=== PATIENT | female | born 1990 | race Caucasian/White ===

== ENCOUNTER 2016-07-30 15:46 | Inpatient (IN) | payer OTHER ==
[~2016-07-30] VITALS: Ht 162.6 cm; Wt 97.0 kg
[~2016-07-30 15:46] MED LIST: ACET1TAB40 PO; AZIT250T94 PO; IBUP-1542 PO; NITR-58 PO
[2016-07-30 16:18] VITALS: Ht 162.6 cm; Wt 97.0 kg
[2016-07-30 16:19] VITALS: BP 117/56; PULSE 96; RESP 18
[2016-07-30] MEDS ORDERED: PREN1TAB79 PO (16:29)
[2016-07-30 17:03] LABS: ADD SCAN DIFF NO
[2016-07-30 17:09] LABS: BASOPHILS % 0.3 % (0.0-2.0); EOSINOPHILS # 0.2 10^3/ul (0.0-0.5); EOSINOPHILS % 2.7 % (0.0-7.0); HEMATOCRIT 34.7 % (37.0-47.0); HEMOGLOBIN 11.4 g/dl (12.0-16.0); LYMPHOCYTES # 1.8 10^3/ul (0.8-2.9); LYMPHOCYTES % 25.7 % (15.0-51.0); MEAN CORPUSCULAR HEMOGLOBIN 28.9 pg (29.0-33.0); MEAN CORPUSCULAR HGB CONC 32.9 g/dl (32.0-37.0); MEAN CORPUSCULAR VOLUME 87.8 fl (82.0-101.0); MEAN PLATELET VOLUME 12.7 fl (7.4-10.4); MONOCYTE # 0.4 10^3/ul (0.3-0.9); MONOCYTES % 6.3 % (0.0-11.0); NEUTROPHIL # 4.5 10^3/ul (1.6-7.5); NEUTROPHILS % 64.3 % (39.0-77.0); PLATELET COUNT 117 10^3/UL (140-415); RED BLOOD COUNT 3.95 10^6/ul (4.20-5.40); RED CELL DISTRIBUTION WIDTH 14.8 % (11.5-14.5)
[2016-07-30 17:11] LABS: ADD UMIC NO; URINE BILIRUBIN (Dip) NEGATIVE (NEGATIVE); URINE BLOOD (Dip) NEGATIVE (NEGATIVE); URINE COLOR LT. YELLOW (YELLOW); URINE GLUCOSE (Dip) NEGATIVE (NEGATIVE); URINE KETONES (Dip) NEGATIVE (NEGATIVE); URINE LEUKOCYTE ESTERASE (Dip) NEGATIVE (NEGATIVE); URINE NITRITE (Dip) NEGATIVE (NEGATIVE); URINE TOTAL PROTEIN (Dip) NEGATIVE (NEGATIVE); URINE UROBILINOGEN (Dip) 0.2 E.U./dL (0.1-1.0)
--- NOTE | 2016-07-30 17:27 | RADRPT ---
PROCEDURE: US biophysical profile. CLINICAL INDICATION: Decreased motion. The patient had labor. TECHNIQUE: Multiple sonographic images of the uterus were obtained. The images were revi ewed on a PACS workstation. COMPARISON: No prior studies are available for comparison. FINDINGS: There is a single live intrauterine gestation. heart rate is 127 beats per minute. The position is cephalic. The placenta is anterior grade II with no abruption or previa. The NAYLA is 9.4 cm. (Normal = 5-20 cm.) Breathing Movement: 2 Gross Body Movement: 2 Tone: 2 Qualitative Amniotic Fluid Volume: 2 TOTAL: 8 IMPRESSION: 1. The biophysical score is 8/8. RPTAT: QQ .Sathish Brown MD, Date Time Electronically viewed and signed by .Sathish Brown MD, MD on 07/30/2016 17:27 .R/
--- NOTE | 2016-07-30 17:30 | RADRPT ---
PROCEDURE: US OB. CLINICAL INDICATION: Large for gestational age. TECHNIQUE: Multiple sonographic images of the uterus were obtained. The images were revi ewed on a PACS workstation. COMPARISON: No prior studies are available for comparison. FINDINGS: There is a single live intrauterine gestation. heart rate is 157 beats per minute. Measurements were made in order to determine age. The results are as follows: BPD = 9.34 cm. HC = 33.00 cm. AC = 34.21 cm. FL = 7.43 cm. Estimated weight is 3371 +/- 505 grams. LMP growth percentile is 66 %. Menstrual age by ultrasound dates is 38 weeks 0 days. The estimated date of delivery is 08/13/2016. Position is cephalic and placenta is anterior grade II. There is no evidence for an abruption or [place] cent[place] previa. IMPRESSION: 1. Single live intrauterine gestation of 38 weeks 0 days menstrual age by ultrasound dates. 2. The estimated date of delivery is 08/13/2016. RPTAT: QQ .Sathish Brown MD, Date Time Electronically viewed and signed by .Sathish Brown MD, on 07/30/2016 17:30 .R/
[2016-07-30 17:55] LABS: ALBUMIN 3.1 g/dl (3.3-4.9)
[2016-07-30 17:56] LABS: POTASSIUM 3.6 mmol/L (3.5-5.1)
[2016-07-30 17:57] LABS: CREATININE 0.51 mg/dl (0.44-1.00)
[2016-07-30 17:58] LABS: BILIRUBIN,INDIRECT 0.4 mg/dl (0-1.1); BILIRUBIN,TOTAL 0.4 mg/dl (0.2-1.3); TOTAL PROTEIN 6.2 g/dl (6.1-8.1)
[2016-07-30 17:59] LABS: CALCIUM 9.6 mg/dl (8.4-10.2)
--- NOTE | 2016-07-30 19:55 | HP ---
Date/Time of Note Date/Time of Note DATE: 07/30/16 TIME: 19:52 OB - History Hx of Present Chief Complaint: contractions Estimated Due Date: August 14, 2016 : 8 Para: 5 Spontaneous : 2 Therapeutic : 0 Care: Good Care Ultrasounds: Normal mid trimester US Obstetrical Complications: None Medical Complications: None Past Family/Social History * Past Medical, Surgical, Family and Obstetric Histories reviewed from chart. GBS Status: Negative OB Admission Exam Vital Signs Vital Signs Vital Signs Date Time Temp Pulse Resp B/P Pulse Ox O2 Delivery O2 Flow Rate FiO2 07/30/16 16:19 99.0 07/30/16 16:19 96 18 117/56 Room Air Physical Exam HEENT: WNL Heart: Rhythm Normal Lungs: Clear Abdomen: WNL Extremities: Normal Cervical Dilatation: 5cm Effacement: 50% Station: -1 Membranes: Intact Heart Rate: 140's Accelerations: Accelerations Present Varibility: Moderate Last 72 hours Lab Results CBC & BMP 07/30/16 16:40 Liver Function Test 07/30/16 16:40 Alanine Aminotransferase (ALT/SGPT) 19 Albumin 3.1 L Alkaline Phosphatase 162 H Aspartate Amino Transf (AST/SGOT) 20 Direct Bilirubin 0.00 Total Protein 6.2 OB Assessment/Plan Reason for admission: other (contractions) Plan: Expectant Management KRISTEN SETH MD July 30, 2016 19:55
[2016-07-30] MEDS ORDERED: LIDOCAINE 1% (MPF) 30 ML INJ INJ PRN (20:00)
[2016-07-30] MEDS ORDERED: MISOPROSTOL 200 MCG TAB PR PRN (20:00)
[2016-07-30] MEDS ORDERED: BUTORPHANOL 2 MG INJ IV PRN (20:00)
[2016-07-30] MEDS ORDERED: METHYLERGONOVINE 0.2 MG INJ IM PRN (20:00)
[2016-07-30] MEDS ORDERED: IBUPROFEN 600 MG TAB PO PRN (20:00)
[2016-07-30] MEDS ORDERED: CARBOPROST 250 MCG INJ IM PRN (20:00)
[2016-07-30] MEDS ORDERED: LACTATED RINGER'S 1,000 ML IV PRN (20:00)
[2016-07-30] MEDS ORDERED: OXYTOCIN 30 UNITS/LR 500 ML IV SCH ×2 (20:00)
[2016-07-30] MEDS ORDERED: OXYTOCIN 30 UNITS/LR 500 ML IV PRN (20:00)
[2016-07-30] MEDS: LACTATED RINGER'S 1,000 ML IV SCH (20:12)
[2016-07-30 20:24] LABS: INR 1.01; PROTIME 13.3 Sec (12.2-14.2)
[2016-07-30 20:25] LABS: PARTIAL THROMBOPLASTIN TIME 26.6 Sec (25.0-35.0)
--- NOTE | 2016-07-30 22:40 | TRIAGE ---
OB Triage Datetime Report Generated by CPN: 07/30/2016 22:40 Datetime: 07/30/2016 22:00 Stage of : Labor Labor Evaluation Frequency: Irregular Monitor Mode: External Duration (sec)2399: 40-60 Quality: Mild Pattern: Normal: <= 5 Contractions in 10 Minutes Resting Tone [place]: Relaxed Heart Rate FHR Baseline Rate: 125 Monitor Mode: External US FHR Baseline Changes: No Baseline Change Variability: Moderate 6-25 bpm Accelerations: 15X15 Decelerations: None Category: Category I Datetime: 07/30/2016 21:00 Stage of : Labor Labor Evaluation Frequency: Irregular Monitor Mode: External Duration (sec)2399: 40-100 Quality: Mild Pattern: Normal: <= 5 Contractions in 10 Minutes Resting Tone [place]: Relaxed Heart Rate FHR Baseline Rate: 125 Monitor Mode: External US Variability: Moderate 6-25 bpm Accelerations: 15X15 Decelerations: None Category: Category I Datetime: 07/30/2016 20:05 Stage of : Labor Assessment Type: Admission Assessment Vaginal Bleeding: None Maternal Assessment Level of Consciousness: Fully Conscious DTR's/Clonus: DTRs 2+; No Clonus Headache: Denies Blurred Vision: No Respiratory Effort: Unlabored; Regular Rhythm; Equal Expansion Breath Sounds, Left: Clear and Equal Breath Sounds, Right: Clear and Equal Nausea/Vomiting: Denies RUQ Epigastric Pain: Denies Lower Extremities Edema: None Degree: None Upper Extremities Edema: None Degree: None Facial Edema: None Fall Risk Assessment History of Falling: (0) No Secondary Diagnosis: (0) No Ambulatory Aid: (0) Bedrest/Nurse Assist IV Therapy: (0) No Gait: (0) Normal/Bedrest/Immobile Mental Status: (0) Oriented to Own Ability Fall Score: 0 Fall Risk Score Definition: No Risk: No action required Labor Evaluation Frequency: Irregular Monitor Mode: External Duration (sec)2399: 40-120 Quality: Mild Pattern: Normal: <= 5 Contractions in 10 Minutes Resting Tone [place]: Relaxed Heart Rate FHR Baseline Rate: 130 Monitor Mode: External US Variability: Moderate 6-25 bpm Accelerations: 15X15 Decelerations: None Category: Category I Pain Assessment Pain Scale: 2 Pain Presence: Intermittent Pain Type: Cramping Pain Location: Abdomen; Back Pain Goal: 5 Membrane Status: Intact Datetime: 07/30/2016 19:42 Stage of : OB Triage Datetime: 07/30/2016 19:35 Stage of : OB Triage Assessment Type: Triage Maternal Assessment Level of Consciousness: Fully Conscious DTR's/Clonus: DTRs 2+; No Clonus Headache: Denies Blurred Vision: No Respiratory Effort: Unlabored; Regular Rhythm; Equal Expansion Breath Sounds, Left: Clear and Equal Breath Sounds, Right: Clear and Equal Nausea/Vomiting: Denies RUQ Epigastric Pain: Denies Lower Extremities Edema: None Degree: None Upper Extremities Edema: None Degree: None Facial Edema: None Temperature Route: Oral Fall Risk Assessment History of Falling: (0) No Secondary Diagnosis: (0) No Ambulatory Aid: (0) Bedrest/Nurse Assist IV Therapy: (0) No Gait: (0) Normal/Bedrest/Immobile Mental Status: (0) Oriented to Own Ability Fall Score: 0 Fall Risk Score Definition: No Risk: No action required Pain Assessment Pain Scale: 2 Pain Presence: Intermittent Pain Type: Cramping Pain Location: Abdomen; Back Pain Relief Measures: Comfort Measures Datetime: 07/30/2016 18:54 Monitor Mode: External Monitor Mode: External US Datetime: 07/30/2016 18:48 Pain Assessment Pain Scale: 0 Pain Presence: None/Denies Pain Type: N/A Pain Goal: 3 Vaginal Exam Dilatation (cms): 5.0 Effacement (%): 50 Station: -1 Exam By: DR DELSHAD Membrane Status: Intact Datetime: 07/30/2016 17:56 Monitor Mode: External US Datetime: 07/30/2016 17:50 Stage of : OB Triage Maternal Assessment Level of Consciousness: SLEEPING Labor Evaluation Frequency: none Monitor Mode: External Contraction Comments: PT SLEEPING Heart Rate FHR Baseline Rate: 125 Monitor Mode: External US Variability: Moderate 6-25 bpm Accelerations: 15X15 Decelerations: None Pain Assessment Pain Scale: 0 Pain Presence: None/Denies Pain Type: N/A Pain Goal: 4 Pain Assessment Comments: NO UCS Membrane Status: Intact Datetime: 07/30/2016 17:36 Monitor Mode: External Contraction Comments: NEW [place] APPLIED Datetime: 07/30/2016 17:02 Stage of : OB Triage Datetime: 07/30/2016 16:49 Stage of : OB Triage Labor Evaluation Frequency: none Monitor Mode: External Heart Rate FHR Baseline Rate: 135 Monitor Mode: External US Variability: Moderate 6-25 bpm Accelerations: 15X15 Decelerations: None Pain Assessment Pain Scale: 0 Pain Presence: None/Denies Pain Type: N/A Pain Goal: 4 Membrane Status: Intact Datetime: 07/30/2016 16:21 Stage of : OB Triage Labor Evaluation Frequency: none (Annotations: since monitor applied) Monitor Mode: External Heart Rate FHR Baseline Rate: 135 Monitor Mode: External US Variability: Moderate 6-25 bpm Accelerations: 15X15 Decelerations: None Category: Category I Pain Assessment Pain Scale: 0 Pain Presence: None/Denies Pain Type: N/A Pain Goal: 4 Membrane Status: Intact Datetime: 07/30/2016 16:04 Time of Arrival: 07/30/2016 19:50 EGA: 37.6 Arrived By: Ambulatory Arrived From: Other Unit in Hospital Datetime: 07/30/2016 15:59 Stage of : OB Triage Labor Evaluation Frequency: IRREGULAR (Annotations: PER PT ) Monitor Mode: External Duration (sec)2399: 60 (Annotations: PER PT REPORT) Quality: Mild Heart Rate FHR Baseline Rate: 140 Monitor Mode: External US Comments: EFM APPLIED Datetime: 07/30/2016 15:56 Time of Arrival: 07/30/2016 15:48 Arrived By: Ambulatory Arrived From: Office Chief Complaint: PT HAS HAD IRREGULAR UCS SINCE SATURDAY-WENT AWAY AT NIGHT;INTERCOURSE ON Y;HEADACHE TODAY BUT STATES SHE NO LONGER HAS THE HEADACHE;BP 139/76 AT CLINIC-PT STATES DR SETH CHECKED HER _ SAID SHE WAS 4CM Movement: Present Contractions: Irregular Time Contractions Began: 07/30/2016 06:00 Contractions: IRREGULAR Rupture of Membranes: Denies Vaginal Bleeding: None Vaginal Discharge: Denies Recent Sexual Intercouse: Yes Abdominal Trauma: Not Applicable Patient Complaints: Contractions Time Provider Notified: 07/30/2016 16:20 Provider Notified: DORINDA Initial Plan: LABOR EVALUATION;CBC;CMP;URIC ACID;UA-PRESCRIPTION SENT FROM CLINIC Datetime: 07/30/2016 15:54 Stage of : OB Triage Assessment Type: Triage Maternal Assessment Level of Consciousness: Fully Conscious Datetime: 07/30/2016 11:54 Stage of : OB Triage Assessment Type: Triage Maternal Assessment Level of Consciousness: Fully Conscious DTR's/Clonus: DTRs 2+; No Clonus Headache: Denies Blurred Vision: No Respiratory Effort: Unlabored; Regular Rhythm; Equal Expansion Breath Sounds, Left: Clear and Equal Breath Sounds, Right: Clear and Equal Nausea/Vomiting: Denies RUQ Epigastric Pain: Denies Lower Extremities Edema: None Degree: None Upper Extremities Edema: None Degree: None Facial Edema: None Temperature Route: Oral Fall Risk Assessment History of Falling: (0) No Secondary Diagnosis: (0) No Ambulatory Aid: (0) Bedrest/Nurse Assist IV Therapy: (0) No Gait: (0) Normal/Bedrest/Immobile Mental Status: (0) Oriented to Own Ability Fall Score: 0 Fall Risk Score Definition: No Risk: No action required Membrane Status: Intact Vaginal Bleeding: None
[2016-07-31] MEDS: LACTATED RINGER'S 1,000 ML IV SCH ×3 (03:20→18:51)
[2016-08-01] MEDS: LACTATED RINGER'S 1,000 ML IV SCH ×4 (02:43→20:36)
[2016-08-01] MEDS ORDERED: MAGNESIUM SULFATE 4 GM/100 ML 100 ML ONE (02:57)
[2016-08-01] MEDS ORDERED: OXYTOCIN 30 UNITS/LR 500 ML IV SCH (07:38)
[2016-08-01] MEDS ORDERED: FENTAnyl 2MCG/ML-ROPIV 0.2% 100 ML BAG EPI SCH (10:30)
[2016-08-01] MEDS ORDERED: DIPHENHYDRAMINE 50 MG INJ IV PRN (10:30)
[2016-08-01] MEDS ORDERED: ONDANSETRON 4 MG INJ IV PRN (10:30)
[2016-08-01] MEDS ORDERED: NALOXONE (0.4 MG/ML) INJ IV PRN (10:30)
[2016-08-01] MEDS ORDERED: FENTAnyl 2MCG/ML-ROPIV 0.2% 100 ML ONE (11:24)
--- NOTE | 2016-08-01 21:32 | LDN ---
Date/Time of Note Date/Time of Note DATE: 08/01/16 TIME: 21:31 Delivery Summary Weeks of Gestation 38 weeks and 1 day Placenta Delivered: Spontaneously Meconium: none Episiotomy: No Perineal laceration: 0 Anesthesia type: Epidural Estimated blood loss: 200 Sponge & Needle done & correct: Yes All needle counts correct: Yes Any foreign bodies felt in the: No Problems: Infant Delivery Information Sex Sex: male Apgars 1 Minute: 9 5 Minute: 9 Suctioning Nose & mouth suctioned at samaria: Yes Umbilical Cord Umbilical cord with: 3 Vessels Cord presentations: no nuchal cord Cord Blood was obtained: Yes Mother & Baby Disposition Disposition Mom & Baby to Maternity; Good: Yes KRISTEN SETH MD August 01, 2016 21:32
--- NOTE | 2016-08-01 21:40 | DELSUM ---
Delivery Summary A-C Datetime Report Generated by CPN: 08/01/2016 21:40 DELIVERY PERSONNEL Security Agent: Long, Lolita MATERNAL INFORMATION Delivery Anesthesia: Epidural Medications in Delivery: OXYTOCIN 30UNITS IN 500ML LR Estimated Blood Loss (ml): 200 Placenta Cultured: No Maternal Complications: None LABOR SUMMARY EDC: 08/14/2016 00:00 No. Babies in Womb: 1 Attempted: No Labor Anesthesia: Epidural LABOR INFORMATION Reason for Induction: Not Applicable Onset of Labor: 08/01/2016 12:56 Complete Dilatation: 08/01/2016 21:00 Oxytocin: Augmentation Group B Beta Strep: Negative Antibiotics # of Doses: 0 Steroids Given: None Reason Steroids Not Administered: Not Applicable MEMBRANES Membranes Rupture Method: Artificial Rupture of Membranes: 08/01/2016 20:00 Length of Rupture (hr): 1.08 Amniotic Fluid Color: Clear Amniotic Fluid Amount: Small Amniotic Fluid Amount: Small Amniotic Fluid Odor: None STAGES OF LABOR Stage 1 hr: 8 Stage 1 min: 4 Stage 2 hr: 0 Stage 2 min: 5 Stage 3 hr: 0 Stage 3 min: 10 Total Time in Labor hr: 8 Total Time in Labor min: 19 VAGINAL DELIVERY Episiotomy: None Laceration Extension: N/A Laceration Type: None Laceration Repair: Not Applicable Initial Vag Sponge Count: 20 Final Vag Sponge Count: 20 Initial Vag Sharps Count: 1 Final Vag Sharps Count: 1 Sponge Count Correct: Yes Sharps Count Correct: Yes Count Comment: 15 instruments BABY A INFORMATION Delivery Date/Time: 08/01/2016 21:05 Method of Delivery: Vaginal Born in Route : No : N/A Forceps: N/A Vacuum Extraction: N/A Shoulder Dystocia : N/A SHOULDER DYSTOCIA BABY A Infant Delivery Date/Time: 08/01/2016 21:05 PRESENTATION/POSITION BABY A Presentation: Cephalic Cephalic Presentation: Vertex Vertex Position: Left Occipital Anterior Breech Presentation: N/A PLACENTA INFORMATION BABY A Placenta Delivery Time : 08/01/2016 21:15 Placenta Method of Delivery: Spontaneous Placenta Status: Delivered SCORES BABY A Heart Rate 1 min: >100 bpm Resp Effort 1 min: Good Cry Reflex Irritability 1 min: Cough/Sneeze/Pulls Away Muscle Tone 1 min: Active Motion Color 1 min: Body [place], Extremit Blue Resuscitation Effort 1 min: Tactile Stimulation SCORE 1 MIN: 9 Heart Rate 5 min: >100 bpm Resp Effort 5 min: Good Cry Reflex Irritability 5 min: Cough/Sneeze/Pulls Away Muscle Tone 5 min: Active Motion Color 5 min: Body [place], Extremit Blue Resuscitation Effort 5 min: Tactile Stimulation SCORE 5 MIN: 9 INFORMATION BABY A Gestational Age at Delivery: 38.1 Gestational Status: Early Term- 37- 38.6 Weeks Infant Outcome : Liveborn Infant Condition : Stable Infant Sex: Male IDENTIFICATION/MEDS BABY A ID Band Number: [id number] ID Band Location: Right Leg; Left Arm Sensor Applied: Yes Sensor Number: [id number] Sensor Location : Cord Clamp Vitamin K Given : Not Given Erythromycin Given: Not Given WEIGHT/LENGTH BABY A Birthweight (gm): 3205 Infant Weight (lb): 7 Infant Weight (oz): 1 Length (in): 19.00 Length (cm): 48.26 CORD INFORMATION BABY A No. Cord Vessels: 3 Nuchal Cord : N/A Cord Blood Taken: Yes Suction: Mouth; Nose ASSESSMENT BABY A Complications: None Physical Findings at Delivery: Within Normal Limits Respirations: Appears Normal Civil Preparedness Training Officer/ALS Called : No Infant Care By: LUPILLO Preciado Transferred To: Remains with Mother
[2016-08-01 22:55] VITALS: BP 128/70; PULSE 70; RESP 19
[2016-08-01] MEDS: LACTATED RINGER'S 1,000 ML IV* SCH (23:35)
[2016-08-01] MEDS: IBUPROFEN 600 MG TAB PO SCH (23:58)
[2016-08-02] MEDS ORDERED: ACETAMINOPHEN 325 MG TAB PO PRN
[2016-08-02] MEDS ORDERED: DIBUCAINE 1% 30 GM OINT PR PRN
[2016-08-02] MEDS ORDERED: CARBOPROST 250 MCG INJ IM PRN
[2016-08-02] MEDS ORDERED: BENZOCAINE 20% 56 ML SPRAY TOP PRN
[2016-08-02] MEDS ORDERED: METHYLERGONOVINE 0.2 MG INJ IM PRN
[2016-08-02] MEDS ORDERED: MISOPROSTOL 200 MCG TAB PR PRN
[2016-08-02] MEDS ORDERED: WITCH HAZEL/GLYCERIN PAD PR PRN
[2016-08-02] MEDS ORDERED: LANOLIN 7 GM TUBE TOP PRN
[2016-08-02] MEDS ORDERED: OXYTOCIN 30 UNITS/LR 500 ML IV PRN
[2016-08-02 00:30] VITALS: BP 125/68; PULSE 77; RESP 18
[2016-08-02] MEDS: ACETAMINOPHEN/CODEINE #3 TAB PO PRN ×3 (00:33→18:17)
[2016-08-02] MEDS: LACTATED RINGER'S 1,000 ML IV* SCH (02:41)
[2016-08-02 04:00] VITALS: BP 106/59; PULSE 77; RESP 18
[2016-08-02] MEDS: IBUPROFEN 600 MG TAB PO SCH ×3 (05:12→18:17)
[2016-08-02 08:39] LABS: ADD SCAN DIFF NO
[2016-08-02 09:05] LABS: BASOPHILS % 0.3 % (0.0-2.0); EOSINOPHILS # 0.1 10^3/ul (0.0-0.5); EOSINOPHILS % 1.8 % (0.0-7.0); HEMATOCRIT 33.9 % (37.0-47.0); HEMOGLOBIN 11.2 g/dl (12.0-16.0); LYMPHOCYTES # 2.1 10^3/ul (0.8-2.9); LYMPHOCYTES % 26.9 % (15.0-51.0); MEAN CORPUSCULAR HEMOGLOBIN 29.2 pg (29.0-33.0); MEAN CORPUSCULAR VOLUME 88.3 fl (82.0-101.0); MEAN PLATELET VOLUME 12.7 fl (7.4-10.4); MONOCYTE # 0.6 10^3/ul (0.3-0.9); MONOCYTES % 8.4 % (0.0-11.0); NEUTROPHIL # 4.7 10^3/ul (1.6-7.5); NEUTROPHILS % 62.1 % (39.0-77.0); PLATELET COUNT 113 10^3/UL (140-415); RED BLOOD COUNT 3.84 10^6/ul (4.20-5.40); RED CELL DISTRIBUTION WIDTH 14.6 % (11.5-14.5); WHITE BLOOD COUNT 7.6 10^3/ul (4.8-10.8)
[2016-08-02] MEDS: SENNA/DOCUSATE NA (8.6MG/50MG) TAB PO SCH ×2 (09:13→21:07)
[2016-08-02 09:15] VITALS: BP 121/77; PULSE 85; RESP 18
[2016-08-02 12:20] VITALS: BP 114/79; PULSE 76; RESP 16
[2016-08-02 16:00] VITALS: BP 109/64; PULSE 72; RESP 16
[2016-08-02 20:00] VITALS: BP 124/65; PULSE 72; RESP 20
--- NOTE | 2016-08-02 20:26 | DS ---
Date/Time of Note Date/Time of Note DATE: 08/02/16 TIME: 20:25 Obstetrical Discharge Record Final Diagnosis Final Diagnosis: Term delivered Complications Augmentation: Yes Condition on Discharge Physical Assessment Voiding: Yes Bowel Movement: Yes Fundus: Firm Calf Tenderness: No Patient Condition: Stable KRISTEN SETH MD August 02, 2016 20:26
[2016-08-03] MEDS: IBUPROFEN 600 MG TAB PO SCH ×3 (00:08→13:21)
[2016-08-03 04:09] VITALS: BP 115/62; PULSE 74; RESP 20
[2016-08-03] MEDS ORDERED: DIPHTH/TET/ACEL PERTUSS (ADULT) 0.5 ML VIAL IM* ONE (09:00)
[2016-08-03 09:30] VITALS: BP 118/76; PULSE 67; RESP 16
[2016-08-03] MEDS: SENNA/DOCUSATE NA (8.6MG/50MG) TAB PO SCH (09:56)
== END 2016-08-03 18:22 | disposition home or self-care (01) | DRG 775 ==
LOC: L-D 15:46 → OBT 15:46 → L-D 15:48 → OBT 19:50 → PP1 08-01 22:57
PROVIDERS: ADMIT Obstetrics & Gynecology; ATTEND Obstetrics & Gynecology
PROC: 10E0XZZ Delivery of Products of Conception, External Approach (ICD-10-PCS; principal; 2016-08-01)
DX: O80 Encounter for full-term uncomplicated delivery (principal); Z37.0 Single live birth; Z3A.38 38 weeks gestation of pregnancy
CPT/HCPCS: 36415; 62319; 76815; 76818; 80053; 81003; 84560; 85025; 85610; 85730; 86592; 86900; 86901; 90715; G0463; J1200; J2590; J3010; J7120

== ENCOUNTER 2016-10-16 08:49 | Day surgery (SDC) | payer OTHER ==
[2016-10-15 13:12] VITALS: BMI 33.3
[2016-10-16] VITALS (10 sets, daily range): BP systolic 115–140; BP diastolic 71–88; PULSE 62–99; RESP 12–20; Ht 162.6 cm; Wt 84.0 kg
[~2016-10-16] VITALS: Ht 162.6 cm; Wt 84.0 kg
[~2016-10-16 08:49] MED LIST changes: -ACET1TAB40 PO; -AZIT250T94 PO; -IBUP-1542 PO; -NITR-58 PO; +PREN1TAB79 PO
[2016-10-16] MEDS ORDERED: FER325 PO (09:17)
[2016-10-16] MEDS ORDERED: LACTATED RINGER'S 1,000 ML IV SCH (09:30)
[2016-10-16 09:31] LABS: ADD SCAN DIFF NO
[2016-10-16 09:32] LABS: BASOPHILS % 0.8 % (0.0-2.0); EOSINOPHILS # 0.2 10^3/ul (0.0-0.5); EOSINOPHILS % 4.2 % (0.0-7.0); HEMATOCRIT 40.1 % (37.0-47.0); HEMOGLOBIN 13.3 g/dl (12.0-16.0); LYMPHOCYTES # 2.1 10^3/ul (0.8-2.9); LYMPHOCYTES % 43.8 % (15.0-51.0); MEAN CORPUSCULAR HEMOGLOBIN 29.2 pg (29.0-33.0); MEAN CORPUSCULAR HGB CONC 33.2 g/dl (32.0-37.0); MEAN CORPUSCULAR VOLUME 87.9 fl (82.0-101.0); MEAN PLATELET VOLUME 12.4 fl (7.4-10.4); MONOCYTE # 0.4 10^3/ul (0.3-0.9); NEUTROPHIL # 2.1 10^3/ul (1.6-7.5); PLATELET COUNT 165 10^3/UL (140-415); RED BLOOD COUNT 4.56 10^6/ul (4.20-5.40); RED CELL DISTRIBUTION WIDTH 13.8 % (11.5-14.5); WHITE BLOOD COUNT 4.8 10^3/ul (4.8-10.8)
[2016-10-16] MEDS ORDERED: BUPIVACAINE 0.25%/EPI (SDV) 30 ML INJ ONE (10:32)
[2016-10-16] MEDS ORDERED: GLYCOPYRROLATE 0.4 MG INJ ONE ×2 (11:13→11:54)
[2016-10-16] MEDS ORDERED: NEOSTIGMINE 3 MG/3 ML SYRINGE ONE ×2 (11:13→11:54)
[2016-10-16] MEDS ORDERED: LIDOCAINE 2% (SDV) 5 ML INJ ONE (11:13)
[2016-10-16] MEDS ORDERED: ROCURONIUM 50 MG INJ ONE (11:13)
[2016-10-16] MEDS ORDERED: PROPOFOL 20 ML ONE (11:13)
[2016-10-16] MEDS ORDERED: MEPERIDINE 100 MG INJ ONE (11:13)
[2016-10-16] MEDS ORDERED: SUCCINYLCHOLINE CHLORIDE 100 MG/5 ML SYG IV ONE (11:13)
[2016-10-16] MEDS ORDERED: DIPHENHYDRAMINE 50 MG INJ IV PRN (11:30)
[2016-10-16] MEDS ORDERED: ONDANSETRON 4 MG INJ IV PRN ×2 (11:30→13:00)
[2016-10-16] MEDS ORDERED: MEPERIDINE 25 MG INJ IV PRN (11:30)
[2016-10-16] MEDS ORDERED: morphine (1 MG/ML) 10ML SYRINGE IV PRN ×3 (11:30)
[2016-10-16] MEDS ORDERED: FENTAnyl 50 MCG/ML VIAL IV PRN ×3 (11:30)
[2016-10-16] MEDS ORDERED: MIDAZOLAM 1 MG/ML 2 ML INJ IV PRN (11:30)
[2016-10-16] MEDS ORDERED: METOCLOPRAMIDE 10 MG INJ IV PRN (11:30)
[2016-10-16] MEDS ORDERED: OXYCODONE/ACETAMINOPHEN (5/325) TAB PO PRN ×3 (11:30→13:00)
[2016-10-16] MEDS ORDERED: ONDANSETRON 4 MG INJ ONE (11:54)
[2016-10-16] MEDS ORDERED: METOCLOPRAMIDE 10 MG INJ ONE (11:54)
--- NOTE | 2016-10-16 12:42 | OPR ---
Date/Time of Note Date/Time of Note DATE: 10/16/16 TIME: 12:39 Operative Report Preoperative Diagnosis Voluntary Sterilization Postoperative Diagnosis Same Operation/Procedure Performed Minilaparotomy, Bilateral Tubal Ligation Surgeon: KRISTEN SETH MD Anesthesia: general Estimated Blood Loss: minimal Specimens Portion of right and left Fallopian tubes Complications: None KRISTEN SETH MD Oct 16, 2016 12:41
[2016-10-16] MEDS ORDERED: morphine 2 MG INJ IV PRN (13:00)
[2016-10-16] MEDS ORDERED: KETOROLAC 30 MG INJ IV PRN (13:00)
[2016-10-16] MEDS ORDERED: CEFAZOLIN 1 GM INJ ONE (14:23)
--- NOTE | 2016-10-17 03:43 | PREOPHP ---
DATE OF ADMISSION: 10/16/2016 HISTORY OF PRESENT ILLNESS: A 26-year-old female 8 para 6 AB 2, last menstrual period 09/28/2016, here for a surgical sterilization, bilateral tubal ligation. PAST MEDICAL HISTORY: Unremarkable. PAST SURGICAL HISTORY: Unremarkable. ALLERGIES: NO KNOWN ALLERGIES. FAMILY HISTORY: Hypertension and diabetes. PHYSICAL EXAMINATION: VITAL SIGNS: Patient afebrile. Vital signs stable. EXTREMITIES: Show within normal limits. ABDOMEN: Soft, nontender, nondistended. PELVIC: Normal. NEUROLOGIC: Normal. IMPRESSION: Voluntary sterilization. PLAN: Mini-laparotomy, bilateral tubal ligation. Risks, benefits and alternatives of procedure were explained to patient. Patient has been counseled as to what all other contraceptions are available including the above method of sterilization. , patient advised with bilateral tubal ligation, there is a chance of failure resulting in ectopic and/or intrauterine . After counseling, patient said she understood and gave full consent for the procedure. Dictated By: Scott Ceballos MD /[email or web address] /Document#: [id number]
== END 2016-10-16 15:05 | disposition home or self-care (01) ==
LOC: SDS 08:49
PROVIDERS: ATTEND Obstetrics & Gynecology
DX: Z30.2 Encounter for sterilization (principal)
CPT/HCPCS: 58600; 85025; 86850; 86900; 86901; 88302; J0690; J1885; J2175; J2405; J2710; J2765; J3010; J7999; Z7512; Z7610